=== PATIENT | male | born 1985 | race Caucasian/White ===

== ENCOUNTER 2025-02-03 06:50 | Emergency (ER) | payer MEDICAID ==
[~2025-02-03] VITALS: Ht 165.1 cm; Wt 71.2 kg
[2025-02-03 07:01] VITALS: O2SAT 99
[2025-02-03 07:47] LABS: BASOPHILS % 0.2 % (0.0-2.0); EOSINOPHILS % 0.3 % (0.0-5.0); HEMATOCRIT. 40.7 % (42.0-52.0); LYMPHOCYTES % 8.2 % (20.0-50.0); MEAN CORPUSCULAR HEMOGLOBIN 32.6 pg (28.0-32.0); MEAN CORPUSCULAR HGB CONC 34.4 g/dL (31.0-37.0); MEAN CORPUSCULAR VOLUME 94.6 fL (80.0-94.0); MEAN PLATELET VOLUME 9.2 fl (7.4-10.4); MONOCYTES % 10.6 % (2.0-8.0); NEUTROPHILS % 80.7 % (40.0-76.0); PLATELET 250 x1000/uL (130-400); RED BLOOD CELL COUNT 4.31 mill/uL (4.7-6.1); RED CELL DISTRIBUTION WIDTH 13.3 % (11.6-14.6); WHITE BLOOD COUNT 12.1 x1000/uL (4.5-11.0)
[2025-02-03] MEDS: MAGNESIUM/ALUMINUM HYDROXIDE/SIMETHICONE 30ML UDC PO ONE (07:53)
[2025-02-03] MEDS: ONDANSETRON 4MG ODT PO ONE (07:53)
[2025-02-03 07:54] LABS: CHLORIDE 101 mEq/L (98-107); POTASSIUM 4.3 mEq/L (3.5-5.1); SODIUM 135 mEq/L (136-145)
[2025-02-03 07:55] LABS: CALCIUM 9.6 mg/dL (8.7-10.4); CARBON DIOXIDE 26 mEq/L (21-32)
[2025-02-03 08:00] LABS: GLUCOSE 135 mg/dL (70-105); UREA NITROGEN BLOOD 11 mg/dL (9-23)
[2025-02-03 08:02] LABS: ALANINE AMINOTRANSFERASE 20 IU/L (10-49); ALBUMIN 4.6 g/dL (3.2-4.8); ASPARTATE AMINOTRANSFERASE 17 IU/L (<34); BILIRUBIN DIRECT 0.2 mg/dL (<=3.0)
[2025-02-03 08:03] LABS: BILIRUBIN TOTAL 0.8 mg/dL (0.1-1.0); PROTEIN TOTAL 7.9 g/dL (6.0-8.3)
[2025-02-03 08:20] LABS: CLARITY URINE CLEAR (CLEAR); COLOR URINE YELLOW (YELLOW); GLUCOSE URINE NEGATIVE (NEGATIVE); KETONES URINE NEGATIVE (NEGATIVE); LEUKOCYTE ESTERASE URINE 2+ (NEGATIVE); NITRITE URINE NEGATIVE (NEGATIVE); OCCULT BLOOD URINE NEGATIVE (NEGATIVE); PROTEIN URINE 1+ (NEGATIVE); SPECIFIC GRAVITY URINE 1.017 (1.005-1.030); UROBILINOGEN URINE 0.2 E.U./dL (0.2-1.0)
[2025-02-03 08:35] LABS: BACTERIA URINE 1+; RBC URINE 0-2 /hpf (0-2); SQUAMOUS EPITHELIAL CELL URINE RARE /lpf (RARE/1+); WBC URINE 50-100 /hpf (0-2); YEAST URINE NONE SEEN
[2025-02-03] MEDS ORDERED: SODIUM CHLORIDE 0.9% 1,000 ML IV ONE (09:45)
[2025-02-03] MEDS ORDERED: CEPH500C2 MT (09:58)
[2025-02-03] MEDS ORDERED: CEFTRIAXONE 1GM/50ML 50 ML IV ONE (10:00)
[2025-02-03 10:07] VITALS: BP 115/72; PULSE 82; RESP 16; TEMP 37.5; O2SAT 99
== END 2025-02-03 10:07 | disposition home or self-care (01) ==
LOC: ER 06:50
DX: N39.0 Urinary tract infection, site not specified (principal); N20.0 Calculus of kidney; Z98.890 Other specified postprocedural states
CPT/HCPCS: 99284; 74176; 80076; 80048; 81003; 83690; 85025; 87086; 87186; 87077; 36415; 74018; Q0162; J7030

== ENCOUNTER 2025-03-12 15:27 | Emergency (ER) | payer MEDICAID ==
[~2025-03-12] VITALS: Ht 170.2 cm; Wt 78.0 kg
[~2025-03-12 15:27] MED LIST: CEPH500C2 MT
[2025-03-12 15:46] VITALS: O2SAT 98
[2025-03-12] MEDS: KETOROLAC 30MG/ML VIAL IM ONE (17:11)
[2025-03-12] MEDS ORDERED: LIDO-53 TP (17:43)
[2025-03-12] MEDS ORDERED: IBUP-2029 MT (17:43)
[2025-03-12 18:04] VITALS: BP 112/83; PULSE 71; RESP 18; TEMP 36.7; O2SAT 98
== END 2025-03-12 18:04 | disposition home or self-care (01) ==
LOC: ER 15:27
DX: S20.212A Contusion of left front wall of thorax, initial encounter (principal); Z98.890 Other specified postprocedural states; V89.2XXA Person injured in unspecified motor-vehicle accident, traffic, initial encounter; Y93.89 Activity, other specified; Y92.410 Unspecified street and highway as the place of occurrence of the external cause; Y99.8 Other external cause status
CPT/HCPCS: 71045; 96372; 99283; J1885; Z7610